=== PATIENT | female | born 1960 | race Caucasian/White ===

== ENCOUNTER → 2019-03-14 | Outpatient (CLI) | payer OTHER ==
--- NOTE | 2019-03-14 15:57 | Diagnostic Imaging Report ---
INDICATION: Postmenopausal screening. COMPARISON: None. FINDINGS: AP Spine L1-L4: [BMD (g/cm2): 0.581] [T-Score: -5.2] [Z-Score: -3.7] [BMD Previous: NA] [BMD % Change: NA] LT Hip Neck: [BMD (g/cm2): 0.653] [T-Score: -2.8] [Z-Score: -1.4] LT Hip Total: [BMD (g/cm2):0.605] [T-Score:-3.2] [Z-Score: -2.1] [BMD Previous: NA] [BMD % Change: NA] RT Hip Neck: [BMD (g/cm2):0.615] [T-Score:-3.0] [Z-Score:-1.6] RT Hip Total: [BMD (g/cm2):0.591] [T-score:-3.3] [Z-Score:-2.2] [BMD Previous:NA] [BMD % Change:NA] *Indicates significant change from prior examination based on 95% confidence level. World Health Organization criteria for BMD interpretation classify patients as Normal (T-score at or above -1.0), Osteopenic (T-score between -1.0 and -2.5) or Osteoporotic (T-score at or below -2.5). LIMITATIONS AND MODIFICATION: None. FRACTURE RISK (FRAX SCORE): The ten year probability of (%): Major Osteoporotic Fracture: [NA] Hip Fracture: [NA] IMPRESSION: 1. Osteoporosis. 2. Baseline examination. 3. See below National Osteoporosis Foundation guidelines on when to potentially initiate pharmacologic therapy. Based on the National Osteoporosis Foundation Guidelines, pharmacologic treatment should be initiated in any of the following, unless clinical conditions suggest otherwise: * Any patient with prior fragility fracture of the hip or vertebrae. A spine fracture indicates 5X risk for subsequent spine fracture and 2X risk for subsequent hip fracture. * Osteoporosis (T-score <-2.5). * Postmenopausal women and men age 50 and older with low bone mass/osteopenia (T-score between -1.0 and -2.5) by DXA and 10-year major osteoporotic fracture greater than 20% or a 10-year probability of hip fracture greater than 3%. These fracture risks are supplied above in the FRAX score, if applicable. * Clinician judgement and/or patient preferences may indicate treatment for people with 10-year fracture probabilities above or below these levels. Dictated by: Dictated on workstation # [id number]
== END ==
LOC: RAD 13:16
PROVIDERS: ATTEND Family Medicine
DX: Z13.820 Encounter for screening for osteoporosis (principal); M81.0 Age-related osteoporosis without current pathological fracture; Z78.0 Asymptomatic menopausal state
CPT/HCPCS: 77080

== ENCOUNTER → 2019-04-25 | Outpatient (CLI) | payer OTHER ==
--- NOTE | 2019-04-25 14:21 | Diagnostic Imaging Report ---
PROCEDURE: CT abdomen without contrast. TECHNIQUE: Multiple contiguous axial images were obtained through the abdomen without the use of intravenous contrast. Auto Exposure Controls were utilized during the CT exam to meet ALARA standards for radiation dose reduction. INDICATION: Incisional hernia and obstruction. COMPARISON: No priors. FINDINGS: There is a left paramedian supraumbilical ventral abdominal wall hernia comprised solely of fat. The neck of the defect measured about 1 cm in diameter. The remaining visualized anterior abdominal wall and rectus sheath appeared intact. No abdominal bowel obstruction. Unopacified liver is unremarkable. The gallbladder is surgically absent. The kidneys are unobstructed. There is a nodule measuring 2.1 x 1.6 cm in the left upper quadrant projecting along the superior surface of the distal tail of the pancreas, its further characterization with oral and intravenous contrast-enhanced abdominal imaging would be recommended. Remaining portions of the pancreas are unremarkable. The abdominal aorta is calcified but nonaneurysmal. Vessel patency cannot be addressed owing to the absence of contrast. There is no ascites or fluid collection. The visualized abdominal small and large bowel loops are nondilated. The lung bases are nonacute. No basilar pleural fluid. IMPRESSION: 1. Left paramedian ventral supraumbilical abdominal wall hernia comprised solely of fat. 2. No evidence for bowel, biliary, or urinary tract obstruction. 3. Indeterminate nodular density projecting in the left upper quadrant posterior to the proximal stomach and not readily separable from the superior surface of the distal pancreatic tail. Further characterization following oral and intravenous contrast recommended. Dictated by: Dictated on workstation # [id number]
== END ==
LOC: RAD 12:56
PROVIDERS: ATTEND Surgery
DX: K43.0 Incisional hernia with obstruction, without gangrene (principal); K43.9 Ventral hernia without obstruction or gangrene
CPT/HCPCS: 74150

== ENCOUNTER 2019-07-09 20:36 | Emergency (ER) | payer OTHER ==
[~2019-07-09] VITALS: Ht 157.4 cm; Wt 52.1 kg
--- OUTSIDE RECORDS SUMMARY | 2019-07-09 20:41 | XMS REPORT | Continuity of Care Document ---
Author Organization Unknown Address Unknown Phone Unavailable Allergies There is no data. Medications There is no data. Problems Date Dx Coded Attending Type Code Diagnosis Diagnosed By 03/15/2019 JUS RIOS MD Ot M81.0 AGE-RELATED OSTEOPOROSIS W/O CURRENT PAT 03/15/2019 JUS RIOS MD, Ot Z13.820 ENCOUNTER FOR SCREENING FOR OSTEOPOROSIS 03/15/2019 JUS RIOS MD, Ot Z78.0 ASYMPTOMATIC MENOPAUSAL STATE 04/27/2019 CARLOS JOHNSON DO Ot K43.0 INCISIONAL HERNIA WITH OBSTRUCTION, WITH 04/27/2019 CARLOS JOHNSON DO Ot K43.9 VENTRAL HERNIA WITHOUT OBSTRUCTION OR GA Procedures There is no data. Results Test Result Range CMP - 02/28/19 14:10 GLUCOSE 119 mg/dL 65-99 UREA NITROGEN (BUN) 14 mg/dL 7-25 CREATININE 0.63 mg/dL 0.50-1.05 eGFR NON-AFR. CHADIAN 100 mL/min/1.73m2 > OR = 60 eGFR 115 mL/min/1.73m2 > OR = 60 BUN/CREATININE RATIO NOT APPLICABLE (calc) 6-22 SODIUM 140 mmol/L 135-146 POTASSIUM 4.3 mmol/L 3.5-5.3 CHLORIDE 96 mmol/L 98-110 CARBON DIOXIDE 36 mmol/L 20-32 CALCIUM 9.2 mg/dL 8.6-10.4 PROTEIN, TOTAL 6.1 g/dL 6.1-8.1 ALBUMIN 4.2 g/dL 3.6-5.1 GLOBULIN 1.9 g/dL (calc) 1.9-3.7 ALBUMIN/GLOBULIN RATIO 2.2 (calc) 1.0-2. 5 BILIRUBIN, TOTAL 0.3 mg/dL 0.2-1.2 ALKALINE PHOSPHATASE 124 U/L 33-130 AST 15 U/L 10-35 ALT 15 U/L 6-29 Encounters ACCT No. Visit Date/Time Discharge Status Pt. Type Provider Facility Loc./Unit Complaint [id number] 02/28/2019 13:15:00 02/28/2019 23:59: 59 CLS Outpatient DAVE CARTWRIGHT [id number] 02/28/2019 13:15:00 Document Registration [id number] 04/25/2019 12:56:00 23:59:59 CLS Outpatient CARLOS JOHNSON DO [facility] RAD INCISIONAL HERNIA W/ OBSTRUCTION,W/O GANGRENE [id number] 03/14/2019 13:16:00 23:59:59 CLS Outpatient GABRIEL ANDREWS, JUS Noble [facility] RAD ASYMPTOMATIC MENOPAUSAL STATE
[2019-07-09] MEDS ORDERED: RT-ALBUTEROL/IPRATROPIUM 3 ML (DUONEB) VIAL ONE (20:45)
[2019-07-09 20:57] LABS: BASOPHILS % (AUTO) 0 % (0-10); EOSINOPHILS # (AUTO) 0.1 10^3/uL (0.0-0.3); EOSINOPHILS % (AUTO) 1 % (0-10); HEMATOCRIT 43 % (35-52); HEMOGLOBIN 13.5 G/DL (11.5-16.0); LYMPHOCYTES # (AUTO) 2.8 X 10^3 (1.0-4.0); LYMPHOCYTES % (AUTO) 19 % (12-44); MEAN CORPUSCULAR HEMOGLOBIN 29 PG (25-34); MEAN CORPUSCULAR HGB CONC 32 G/DL (32-36); MEAN CORPUSCULAR VOLUME 92 FL (80-99); MEAN PLATELET VOLUME 9.6 FL (7.4-10.4); MONOCYTES # (AUTO) 2.3 X 10^3 (0.0-1.0); MONOCYTES % (AUTO) 16 % (0-12); NEUTROPHILS # (AUTO) 9.5 X 10^3 (1.8-7.8); NEUTROPHILS % (AUTO) 65 % (42-75); PLATELET COUNT 282 10^3/uL (130-400); RED CELL DISTRIBUTION WIDTH 13.7 % (10.0-14.5); WHITE BLOOD COUNT 14.6 10^3/uL (4.3-11.0)
[2019-07-09 20:58] LABS: ABG BASE EXCESS 8.8 MMOL/L (-2.5-2.5); ABG OXYGEN SATURATION 99 % (94-100); ABG PCO2 62 MMHG (35-45); ABG PH 7.36 (7.37-7.43); ABG PO2 118 MMHG (79-93); ABG TCO2 36.3 MMOL/L (21.0-31.0); ALLENS TEST YES-POS; INSPIRED O2 2L; PATIENT TEMP 36.8; VENTILATOR NO
--- NOTE | 2019-07-09 21:00 | ED General ---
General Chief Complaint: General Problems/Pain Stated Complaint: LETHARGIC/PRODUCTIVE COUGH/HX COPD Source of Information: Patient Exam Limitations: No Limitations History of Present Illness Date Seen by Provider: July 09, 2019 Time Seen by Provider: 20:58 Initial Comments To ER with a three-day history of lethargy, productive cough, history of COPD. No fevers, no travel history, she states she hasn't left her house in several weeks. She wears oxygen at 2 L/m per nasal cannula around the clock. Timing/Duration: 1-2 Days Severity: Moderate Associated Systoms: Cough Allergies and Home Medications Allergies Coded Allergies: No Known Drug Allergies (Unverified , 07/09/19) Home Medications Amoxicillin/Potassium Clav 1 Each Tablet, 1 EACH PO BID Prescribed by: NEELAM KAUR on 07/09/192126 Prednisone 20 Mg Tab, 40 MG PO DAILY Prescribed by: NEELAM KAUR on 07/09/192126 Patient Home Medication List Home Medication List Reviewed: Yes Review of Systems Review of Systems Constitutional: see HPI, other (fatigue) EENTM: see HPI Respiratory: see HPI, cough Cardiovascular: no symptoms reported Genitourinary: no symptoms reported Musculoskeletal: no symptoms reported Skin: no symptoms reported Psychiatric/Neurological: No Symptoms Reported Past Threwbz-Rygnhc-Sgktjs Hx Patient Social History Recent Foreign Travel: No Contact w/Someone Who Travel: No Physical Exam Vital Signs Vital Signs - First Documented 07/09/19 20:45 Temp 36.8 Pulse 114 Resp 20 B/P (MAP) 144/88 (106) Pulse Ox 97 O2 Delivery Nasal Cannula O2 Flow Rate 2.00 Capillary Refill : Height, Weight, BMI Height: '" Weight: lbs. oz. kg; BMI Method: General Appearance: No Apparent Distress, WD/WN, Chronically ill (appears much older than stated age), Thin, Other (speaks in full sentences, no distress, lung sounds are very diminished with expiratory wheeze. Oxygen saturation 99% on her baseline 2 L.) Eyes: Bilateral Eye Normal Inspection, Bilateral Eye PERRL, Bilateral Eye EOMI HEENT: PERRL/EOMI, TMs Normal Neck: Full Range of Motion, Normal Inspection Respiratory: No Accessory Muscle Use, No Respiratory Distress, Decreased Breath Sounds Gastrointestinal: Normal Bowel Sounds, Non Tender, Soft Extremity: Normal Capillary Refill, Normal Inspection Neurologic/Psychiatric: Alert, Oriented x3 Skin: Normal Color, Warm/Dry Progress/Results/Core Measures Suspected Sepsis SIRS Temperature: Pulse: Respiratory Rate: Laboratory Tests 07/09/19 20:50: White Blood Count 14.6H Blood Pressure / Mean: Laboratory Tests 07/09/19 20:50: Creatinine 0.64, Platelet Count 282 Results/Orders Lab Results Laboratory Tests Test 07/09/19 20:50 07/09/19 20:56 Range/Units White Blood Count 14.6 H 4.3-11.0 10^3/uL Red Blood Count 4.66 4.35-5.85 10^6/uL Hemoglobin 13.5 11.5-16.0 G/DL Hematocrit 43 35-52 % Mean Corpuscular Volume 92 80-99 FL Mean Corpuscular Hemoglobin 29 25-34 PG Mean Corpuscular Hemoglobin Concent 32 32-36 G/DL Red Cell Distribution Width 13.7 10.0-14.5 % Platelet Count 282 130-400 10^3/uL Mean Platelet Volume 9.6 7.4-10.4 FL Neutrophils (%) (Auto) 65 42-75 % Lymphocytes (%) (Auto) 19 12-44 % Monocytes (%) (Auto) 16 H 0-12 % Eosinophils (%) (Auto) 1 0-10 % Basophils (%) (Auto) 0 0-10 % Neutrophils # (Auto) 9.5 H 1.8-7.8 X 10^3 Lymphocytes # (Auto) 2.8 1.0-4.0 X 10^3 Monocytes # (Auto) 2.3 H 0.0-1.0 X 10^3 Eosinophils # (Auto) 0.1 0.0-0.3 10^3/uL Basophils # (Auto) 0.0 0.0-0.1 10^3/uL Neutrophils % (Manual) 67 % Lymphocytes % (Manual) 20 % Monocytes % (Manual) 13 % Hypochromasia SLIGHT Sodium Level 136 135-145 MMOL/L Potassium Level 4.1 3.6-5.0 MMOL/L Chloride Level 95 L 98-107 MMOL/L Carbon Dioxide Level 29 21-32 MMOL/L Anion Gap 12 5-14 MMOL/L Blood Urea Nitrogen 8 7-18 MG/DL Creatinine 0.64 0.60-1.30 MG/DL Estimat Glomerular Filtration Rate > 60 BUN/Creatinine Ratio 13 Glucose Level 100 70-105 MG/DL Calcium Level 9.0 8.5-10.1 MG/DL Blood Gas Puncture Site RIGHT RADIAL Blood Gas Patient Temperature 36.8 Arterial Blood pH 7.36 L 7.37-7.43 Arterial Blood Partial Pressure CO2 62 H 35-45 MMHG Arterial Blood Partial Pressure O2 118 H 79-93 MMHG Arterial Blood HCO3 34 H 23-27 MMOL/L Arterial Blood Total CO2 36.3 H 21.0-31.0 MMOL/L Arterial Blood Oxygen Saturation 99 94-100 % Arterial Blood Base Excess 8.8 H -2.5-2.5 MMOL/L Jimi Test YES-POS Blood Gas Ventilator Setting NO Blood Gas Inspired Oxygen 2L My Orders Orders - NEELAM KAUR APRN Cbc With Automated Diff (07/09/19 20:46) Basic Metabolic Panel (07/09/19 20:46) Chest Pa/Lat (2 View) (07/09/19 20:46) Arterial Blood Gas (07/09/19 20:55) Manual Differential (07/09/19 20:50) Ceftriaxone For Iv Use (Rocephin For I (07/09/19 21:30) Prednisone Tablet (Deltasone Tablet) (07/09/19 21:30) Medications Given in ED Current Medications Medications Dose Ordered Sig/Tashi Route Start Time Stop Time Status Last Admin Dose Admin Albuterol/ Ipratropium 3 ml STK-MED ONCE .ROUTE 07/09/19 20:45 07/09/19 20:54 DC 07/09/19 20:56 3 ML Ceftriaxone Sodium 1000 mg/ Sterile Water 10 ml @ 200 mls/hr ONCE ONCE IV 07/09/19 21:30 07/09/19 21:32 DC 07/09/19 21:34 200 MLS/HR Prednisone 60 mg ONCE ONCE PO 07/09/19 21:30 07/09/19 21:31 DC 07/09/19 21:34 60 MG Vital Signs/I&O 07/09/19 20:45 Temp 36.8 Pulse 114 Resp 20 B/P (MAP) 144/88 (106) Pulse Ox 97 O2 Delivery Nasal Cannula O2 Flow Rate 2.00 Capillary Refill : Diagnostic Imaging Diagonstic Imaging: Xray Plain Films/CT/US/NM/MRI: chest Comments NAME: ALFREDO HALL MED REC#: [id number] PT STATUS: REG ER : 1960 PHYSICIAN: NEELAM KAUR APRN ADMIT DATE: 07/09/19/ER Draft Date of Exam:07/09/19 CHEST PA/LAT (2 VIEW) INDICATION: Cough and shortness of breath. EXAMINATION: PA and lateral chest. FINDINGS: There is air trapping in the lungs. There is a 2 cm nodular opacity in the left upper lobe. There is no infiltrate, effusion or pneumothorax. Heart size and pulmonary vascularity are normal. IMPRESSION: COPD. Possible pulmonary nodule in the left upper lobe. Neoplasm could not be excluded. Dictated on workstation # [id number] Dict: 07/09/192119 Trans: 07/09/192121 E [id number] Interpreted by: ABHIJIT KYLE MD Electronically signed by: Departure Communication (Admissions) Discussed with patient the elevated CO2, she states "oh, its gone down then". Shes mentating well, doesnt need bipap at this time. Discussed with patient that we'd dc to home on antibiotics and steroids. Discussed the pulmonary nodule. She states that she has a CT ordered (but she isnt sure when) to further evaluate that by a doc in [place]. Discussed with daughter and she agrees to return her mother to ER or primary care if no improvement. Impression Primary Impression: COPD exacerbation Additional Impression: Pulmonary nodule, left Disposition: 01 HOME, SELF-CARE Condition: Stable Departure-Patient Inst. Decision time for Depature: 21:26 Referrals: JUS RIOS MD (PCP/Family) Primary Care Physician Patient Instructions: Exacerbation of COPD, Pulmonary Nodule Add. Discharge Instructions: 1. Steroids and antibiotics as directed. Follow-up with her regular doctor later this week to schedule a CT scan of the chest to further evaluate the nodule in the left lung. Return to ER for any worsening. All discharge instructions reviewed with patient and/or family. Voiced understanding. Scripts Amoxicillin/Potassium Clav (Augmentin 875-125 Tablet) 1 Each Tablet 1 EACH PO BID, #14 TAB 0 Refills Prov: NEELAM KAUR APRN 07/09/19 Prednisone (Prednisone) 20 Mg Tab 40 MG PO DAILY, #6 TAB 0 Refills Prov: NEELAM KAUR APRN 07/09/19 NEELAM KAUR APRN July 09, 2019 21:00
[2019-07-09 21:06] LABS: CHLORIDE 95 MMOL/L (98-107); POTASSIUM 4.1 MMOL/L (3.6-5.0); SODIUM 136 MMOL/L (135-145)
[2019-07-09 21:08] LABS: GLUCOSE 100 MG/DL (70-105)
[2019-07-09 21:09] LABS: CARBON DIOXIDE 29 MMOL/L (21-32)
[2019-07-09 21:12] LABS: CREATININE SERUM 0.64 MG/DL (0.60-1.30); GFR ESTIMATED > 60
[2019-07-09 21:13] LABS: BUN/CREATININE RATIO 13
--- NOTE | 2019-07-09 21:23 | Diagnostic Imaging Report ---
INDICATION: Cough and shortness of breath. EXAMINATION: PA and lateral chest. FINDINGS: There is air trapping in the lungs. There is a 2 cm nodular opacity in the left upper lobe. There is no infiltrate, effusion or pneumothorax. Heart size and pulmonary vascularity are normal. IMPRESSION: COPD. Possible pulmonary nodule in the left upper lobe. Neoplasm could not be excluded. Dictated by: Dictated on workstation # [id number]
[2019-07-09 21:27] LABS: HYPOCHROMASIA SLIGHT; LYMPHOCYTES % (MANUAL) 20 %; MONOCYTES % (MANUAL) 13 %; NEUTROPHILS % (MANUAL) 67 %
[2019-07-09] MEDS ORDERED: AMOX-358 PO (21:27)
[2019-07-09] MEDS ORDERED: PRD20T PO (21:27)
[2019-07-09] MEDS ORDERED: cefTRIAXone FOR IV USE 1,000 MG in WATER (STERILE) FOR INJECTION 10 ML IV ONE (21:30)
[2019-07-09] MEDS ORDERED: predniSONE 20 MG TAB PO ONE (21:30)
[2019-07-09 21:40] VITALS: BP 112/79
== END 2019-07-09 21:40 | disposition home or self-care (01) ==
LOC: EDUNIT# 20:36 → ER 20:38
DX: J44.1 Chronic obstructive pulmonary disease with (acute) exacerbation (principal); R91.1 Solitary pulmonary nodule; Z99.81 Dependence on supplemental oxygen
CPT/HCPCS: 36415; 71046; 80048; 82805; 85007; 85027; 94640; 96374

== ENCOUNTER → 2019-07-14 | Outpatient (CLI) | payer OTHER ==
[~2019-07-14] MED LIST: AMOX-358 PO; HOLD METFORMIN - RECEIVED CONTRAST 20 ML VIAL IV SCH; IOHEXOL 350 MG/ML 100 ML (OMNIPAQUE 350) VIAL IV ONE; NS 100 ML (IVPB) BAG IV ONE; PRD20T PO
--- NOTE | 2019-07-14 15:17 | Diagnostic Imaging Report ---
EXAMINATION: CT Chest with intravenous contrast. TECHNIQUE: Multiple contiguous axial images were obtained through the chest after the uneventful administration of intravenous contrast. All CT scans use one or more of the following dose optimizing techniques: automated exposure control, MA and/or KvP adjustment based on a patient size and exam type, or iterative reconstruction. HISTORY: Pulmonary nodule on chest radiograph. COMPARISON: Chest radiograph dated 07/09/2019. FINDINGS: There is no edema or pneumonia. No pleural effusion. No pneumothorax. There is no CT correlate for the radiographic abnormality. The abnormality is likely an old left anterior second rib fracture. Lungs are severely emphysematous. Heart size is normal. There are mild coronary artery calcifications. No pericardial effusion. Aorta is normal in caliber. There is no axillary or supraclavicular lymphadenopathy. There is no mediastinal lymphadenopathy. Limited views of the upper abdomen show the gallbladder to be absent. The nodule associated with the pancreatic tail and stomach is unchanged. There are no suspicious osseus lesions. There are multiple chronic-appearing compression fractures in the thoracic spine. IMPRESSION: 1. No pulmonary nodules are seen. The abnormality on the radiograph is likely necrotic left anterior second rib fracture. 2. Stable nodule associated with the pancreatic tail and stomach, pancreas protocol CT is recommended for further evaluation. Dictated by: Dictated on workstation # [id number]
== END ==
LOC: RAD FS 13:26
PROVIDERS: ATTEND Family Medicine
DX: R91.1 Solitary pulmonary nodule (principal); K86.89 Other specified diseases of pancreas; K31.89 Other diseases of stomach and duodenum
CPT/HCPCS: 71260

== ENCOUNTER → 2019-07-20 | Outpatient (CLI) | payer OTHER ==
[~2019-07-20] MED LIST changes: +BARIUM SUSPENSION 2.1% (VANILLA SILQ) 450 ML PO ONE; +CATHETER FLUSH 10 ML SYR IV PRN
--- NOTE | 2019-07-20 16:18 | Diagnostic Imaging Report ---
PROCEDURE: CT abdomen with and without contrast. TECHNIQUE: Multiple contiguous axial CT images of the abdomen were obtained prior to and after intravenous administration of iodinated contrast. Auto Exposure Controls were utilized during the CT exam to meet ALARA standards for radiation dose reduction. INDICATION: Follow-up pancreatic nodule. CORRELATION STUDY: CT abdomen 04/25/2019 FINDINGS: Emphysematous changes about the lung bases. Heart size within normal limits. The liver demonstrates a small amount of pneumobilia. There are cholecystectomy clips. This is may be owing to a prior surgery. No appreciable bile ductal dilatation. Spleen unremarkable. Right adrenal gland unremarkable. Lower-density nodule left adrenal gland favors probable adenoma, 11 mm in size. 1.6 x 2.1 cm mass in the left upper quadrant just posterior to the gastric body adjacent to the left adrenal gland and inseparable from the superior distal pancreatic tail. Demonstrates only mild enhancement, is also inseparable from adjacent vessels. Kidneys normal enhancement. No calcification or hydronephrosis. The abdominal aorta with mild to moderate aortic wall calcification, nonaneurysmal. There is mild to moderate focal narrowing at the origin of the celiac trunk. No pathologically enlarged central retroperitoneal lymph nodes present. Partially visualized gastrointestinal tract demonstrates the stomach to be slightly thick walled but is largely collapsed. Moderate severity fecal retention of stool in the visualized colon. A superior midline abdominal fat-containing hernia just anterior to the left lobe of the liver persists. Defect 14 mm in size. IMPRESSION: 1. 2 cm left upper quadrant mass again demonstrated. Origin is somewhat indeterminate. This may very well originate off the pancreas but could also be perhaps vascular in origin. Gastrointestinal stromal tumor of the stomach is considered less likely. MRI may be of additional diagnostic utility. However, endoscopic ultrasound may be of additional diagnostic utility. 2. Small amount of pneumobilia likely owing to prior biliary surgery. 3. Unchanged superior midline ventral wall hernia containing fat. Dictated by: Dictated on workstation # [id number]
== END ==
LOC: RAD FS 10:35
PROVIDERS: ATTEND Family Medicine
DX: K43.9 Ventral hernia without obstruction or gangrene (principal); R91.8 Other nonspecific abnormal finding of lung field
CPT/HCPCS: 74170

== ENCOUNTER 2019-09-28 12:50 | Outpatient (RCR) | payer OTHER ==
[~2019-09-28] VITALS: Ht 154 cm; Wt 54.5 kg
[~2019-09-28 12:50] MED LIST changes: -BARIUM SUSPENSION 2.1% (VANILLA SILQ) 450 ML PO ONE; -CATHETER FLUSH 10 ML SYR IV PRN; -HOLD METFORMIN - RECEIVED CONTRAST 20 ML VIAL IV SCH; -IOHEXOL 350 MG/ML 100 ML (OMNIPAQUE 350) VIAL IV ONE; -NS 100 ML (IVPB) BAG IV ONE
[2019-09-28] MEDS ORDERED: ALEN70TA5 PO (13:02)
[2019-09-28] MEDS ORDERED: ESCI20TA45 PO (13:33)
[2019-09-28] MEDS ORDERED: AZIT500T9 PO (13:33)
[2019-09-28] MEDS ORDERED: TRM50T PO (13:33)
[2019-09-28] MEDS ORDERED: IBUP-1780 PO (13:33)
[2019-09-28] MEDS ORDERED: IPRA3AMP31 IH (13:33)
[2019-09-28] MEDS ORDERED: TIOT18CA2 IH (13:33)
[2019-09-28] MEDS ORDERED: PRED5TAB PO (13:33)
[2019-09-28] MEDS ORDERED: OMEP40CA27 PO (13:33)
[2019-09-28] MEDS ORDERED: FLUT1AER IH (13:33)
== END 2019-09-28 13:38 | disposition home or self-care (01) ==
LOC: PREOP 12:50
PROVIDERS: ATTEND Surgery
DX: Z01.818 Encounter for other preprocedural examination (principal)
CPT/HCPCS: 87081

== ENCOUNTER 2019-10-04 06:57 | Day surgery (SDC) | payer OTHER ==
[2019-10-04] VITALS (11 sets, daily range): BP systolic 105–135; BP diastolic 68–91
[~2019-10-04] VITALS: Ht 154.9 cm; Wt 54.5 kg
[~2019-10-04 06:57] MED LIST changes: +ALEN70TA5 PO; +AZIT500T9 PO; +ESCI20TA45 PO; +FLUT1AER IH; +IBUP-1780 PO; +IPRA3AMP31 IH; +OMEP40CA27 PO; +PRED5TAB PO; +TIOT18CA2 IH; +TRM50T PO
[2019-10-04] MEDS ORDERED: BUP/EPI 0.5% 1:200,000 (MARCAINE) 10ML VIAL IJ ONE (07:06)
[2019-10-04] MEDS: LACTATED RINGERS 1,000 ML IV PRN ×2 (07:12→08:32)
[2019-10-04] MEDS ORDERED: ceFAZolin 2 GM IV Premixed 50 ML IV ONE (07:15)
[2019-10-04] MEDS ORDERED: LIDOCAINE PF 2% 5 ML (XYLOCAINE) VIAL ONE (07:17)
[2019-10-04] MEDS ORDERED: proPOfol 200 MG/20 ML (DIPRIVAN) VIAL IV ONE (07:17)
[2019-10-04] MEDS ORDERED: ONDANSETRON 4 MG/2 ML (SDV) Z0FRAN ONE (07:17)
[2019-10-04] MEDS ORDERED: MIDAZOLAM 2 MG/2 ML (VERSED) VIAL ONE (07:18)
[2019-10-04] MEDS ORDERED: fentaNYL INJECTION 100 MCG/2 ML AMP ONE (07:18)
[2019-10-04 07:35] LABS: BASOPHILS % (AUTO) 0 % (0-10); EOSINOPHILS # (AUTO) 0.1 10^3/uL (0.0-0.3); EOSINOPHILS % (AUTO) 1 % (0-10); HEMATOCRIT 42 % (35-52); HEMOGLOBIN 13.4 G/DL (11.5-16.0); LYMPHOCYTES # (AUTO) 2.9 X 10^3 (1.0-4.0); LYMPHOCYTES % (AUTO) 30 % (12-44); MEAN CORPUSCULAR HEMOGLOBIN 30 PG (25-34); MEAN CORPUSCULAR HGB CONC 32 G/DL (32-36); MEAN CORPUSCULAR VOLUME 95 FL (80-99); MONOCYTES # (AUTO) 1.5 X 10^3 (0.0-1.0); MONOCYTES % (AUTO) 16 % (0-12); NEUTROPHILS # (AUTO) 5.2 X 10^3 (1.8-7.8); NEUTROPHILS % (AUTO) 53 % (42-75); PLATELET COUNT 248 10^3/uL (130-400); WHITE BLOOD COUNT 9.7 10^3/uL (4.3-11.0)
[2019-10-04] MEDS ORDERED: PHENYLEPHRINE 100 MCG/ML 10 ML (ANESTHESIA) SYR ONE (09:01)
[2019-10-04] MEDS ORDERED: BUPIVACAINE 0.5% 30 ML (SENSORCAINE) VIAL ONE (09:01)
--- NOTE | 2019-10-04 09:05 | Progress Note-Post Operative ---
Post-Operative Progess Note Surgeon (s)/Residential Property Manager (s) Surgeon CARLOS JOHNSON DO Residential Property Manager: Evelia Pre-Operative Diagnosis INCISIONAL HERNIA Post-Operative Diagnosis Incarcerated Incisional/Ventral Herniarraphy Procedure & Operative Findings Date of Procedure 10/04/19 Procedure Performed/Findings Open Ventral Herniarraphy with mesh placement Anesthesia Type Spinal and local lidocaine Estimated Blood Loss Estimated blood loss (mL): scant Specimens/Packing Specimens Removed hernia contents CARLOS JOHNSON DO Oct 04, 2019 09:05
[2019-10-04] MEDS ORDERED: TRM50T PO (09:06)
--- NOTE | 2019-10-04 09:08 | Discharge Inst-Surgical ---
Discharge Inst-Surgical Depart Medication/Instructions New, Converted or Re-Newed RX: RX Given to Pt/Family Patient Instructions Follow up Appt: Make appointment for 1 week. [phone] Instructions: No lifting greater than 20 pounds. No strenuous activity. May shower in 24 hours, no tub bath or soaking. Use incentive spirometer at home as directed. No Smoking Skin/Wound Care: May remove bandages in am. You need to leave the Dermabond on incision it will fall off on it's own. Symptoms to Report: Appetite Changes, Extremity Discoloration, Numbness/Tingling, Swelling Increased, Bleeding Excessive, Eyesight Changes, Pain Increased, Urine Color Change, Constipation(Persistent), Fever over 101 degree F, Pain/Pressure in chest, Urinating Difficulty, Cough Up/Vomit Blood, Heart Beat Irreg/Pounding, Pain/Pressure in jaw, Cramps in feet or legs, Lightheadedness, Pain/Pressure in shoulder, Diarrhea(Persistent), Memory Changes Suddenly, Questions/Concerns, Weight gain consecutive days, Dizziness/Fainting, Nausea/Vomiting, Shortness of Breath, Weight gain over 2 pounds If questions or concerns contact your physician Or seek help at emergency department. Activity Activity as Tolerated: Yes Activity Instructions: Avoid Stress to Incision Driving Instructions: No Driving/Refer to Avoid ALL Tobacco Products: Smoking of Any Kind Diet Discharge Diet: No Restrictions Diet After 24 Hours: Clear Liquid if Nauseous If Any Problems/Questions/Issu: Contact Your Physician, Go to Emergency Room Skin/Wound Care Infection Signs and Symptoms: Increased Redness, Foul Odor of Wound, Increased Drainage, Skin Itchy or Has a Rash, Increased Swelling, Temperature Above 101 F Bathing Instructions: Shower Stitches/[place]/Dermabond Dis: Dermabond Ice Pack: Ice On and Off Site CARLOS JOHNSON DO Oct 04, 2019 09:07
[2019-10-04] MEDS ORDERED: morphine INJ 10 MG/ML 1ML (SYR OR VIAL) IVP ONE (09:45)
[2019-10-04] MEDS ORDERED: ONDANSETRON 4 MG/2 ML (SDV) Z0FRAN IVP PRN (09:45)
--- NOTE | 2019-10-04 09:47 | Anesthesia-Regional Post-Op ---
Regional Patient Condition Mental Status: Alert, Oriented x3 Circulation: Same as Pre-Op Headache: Absent Sensation: Full Recovery Motor Block: Absent Post Op Complications Complications None Follow Up Care/Instructions Patient Instructions None needed. Anesthesia/Patient Condition Patient is doing well, no complaints, stable vital signs, no apparent adverse anesthesia problems. No complications reported per nursing. EULALIA TRIMBLE CRNA Oct 04, 2019 09:47
--- NOTE | 2019-10-04 19:21 | OPERATIVE REPORT ---
DATE OF SERVICE: 10/04/2019 PREOPERATIVE DIAGNOSIS: Incarcerated incisional ventral hernia. POSTOPERATIVE DIAGNOSIS: Incarcerated incisional ventral hernia. PROCEDURE: Open ventral herniorrhaphy with mesh placement. SURGEON: Robinson Yoder DO COAT FELLER: Reagan Altamirano DO. ANESTHESIA: Spinal with local lidocaine. BLOOD LOSS: Scant. FLUIDS: Per anesthesia. POSTOPERATIVE CONDITION: Stable. INDICATION FOR PROCEDURE: The patient is a 59-year-old female who has a large bulge in the left upper abdomen, right next to her open incision. Had a CAT scan, which shows incarcerated incisional hernia and she wanted to get this fixed, it started to get bigger and caused her pain. Unfortunately, she had very poor pulmonary function, so had to do this without putting her to sleep. FINDINGS: The patient had incarcerated incisional hernia, this is repaired without any difficulty. PROCEDURE NOTE: After informed consent was obtained, the patient was brought to the operating room, placed on the table in supine position. She was sterilely prepped and draped in normal fashion. Local lidocaine was used to infiltrate above this lump as well as around it. I made an incision with #15 blade, carried down to skin and subcutaneous tissue, then deepened down to subcutaneous tissue with Bovie electrocautery, able to see the hernia sac, able to open this hernia sac and then carefully push some of the hernia contents back in, some we had to remove. This was passed off table and then able to free up the fascia to be able to visualize it, then got under the fascia with my finger and then bluntly dissected under the fascia. I elected to place a 6 cm Ventralex hernia patch. This went in easily. We then closed the hernia defect with 0 Vicryl, two [id number] sutures to close it. Closed it nicely, tying in the tail of the Ventralex mesh and then cutting off the tail. Area was cleaned and dried. Cut off the tail and then copiously irrigated with normal saline, suctioned this out and then closed the incision with 4-0 Monocryl, 4-0 interrupted subcuticular stitches. Area was cleaned and dried. Dermabond placed as well as dressing. The patient tolerated the procedure. Sponge, instrument and needle count correct at the end of the case. Dr. Altamirano assisted in this case helping to close the incision, identify anatomy, hold anatomy out of the way. Job ID: [id number] DocumentID: [id number] Dictated Date: 10/04/2019 09:11:01 Distribution Field Engineer Date: 10/04/2019 19:19:48 Dictated By: ROBINSON YODER DO
== END 2019-10-04 13:30 | disposition home or self-care (01) ==
LOC: SDC 06:57
PROVIDERS: ATTEND Surgery
DX: K43.0 Incisional hernia with obstruction, without gangrene (principal); J43.9 Emphysema, unspecified; M81.0 Age-related osteoporosis without current pathological fracture; F41.9 Anxiety disorder, unspecified; F32.9 Major depressive disorder, single episode, unspecified; K21.9 Gastro-esophageal reflux disease without esophagitis; M54.9 Dorsalgia, unspecified; G89.29 Other chronic pain; Z79.899 Other long term (current) drug therapy; Z11.2 Encounter for screening for other bacterial diseases
CPT/HCPCS: 49561; 49568; 85025; 87081; C1781; 36415

== ENCOUNTER 2019-12-12 06:43 | Outpatient (RCR) | payer OTHER ==
[~2019-12-12] VITALS: Ht 154.9 cm; Wt 54.5 kg
[~2019-12-12 06:43] MED LIST changes: -ALEN70TA5 PO; +ALEN70TA69 PO
[2019-12-12] MEDS ORDERED: OMEP20CA18 PO (11:21)
[2019-12-12] MEDS ORDERED: TRAM50TA3 PO (11:21)
== END 2019-12-12 11:51 | disposition home or self-care (01) ==
LOC: PREOP 06:43
PROVIDERS: ATTEND Specialist
DX: Z01.818 Encounter for other preprocedural examination (principal)

== ENCOUNTER → 2019-12-13 | Outpatient (CLI) | payer OTHER ==
[~2019-12-13] MED LIST changes: +OMEP20CA18 PO; +TRAM50TA3 PO
== END ==
LOC: LAB FS 10:30
PROVIDERS: ATTEND Specialist
DX: Z01.812 Encounter for preprocedural laboratory examination (principal); Z20.828 Contact with and (suspected) exposure to other viral communicable diseases
CPT/HCPCS: 87635

== ENCOUNTER 2019-12-15 07:59 | Day surgery (SDC) | payer OTHER ==
[~2019-12-15] VITALS: Ht 154.9 cm; Wt 54.5 kg
[2019-12-15] MEDS ORDERED: POVIDONE (BETADINE) OPHTH SOLN 5% 30 ML OP ONE (08:15)
[2019-12-15] MEDS ORDERED: LIDOCAINE PF 1% 2 ML VIAL IR PRN (08:15)
[2019-12-15] MEDS ORDERED: TIMOLOL MALEATE 0.5% 5 ML (TIMOPTIC) BTL OU PRN (08:15)
[2019-12-15] MEDS ORDERED: MOXIFLOXACIN OPHTH SOLN 5 MG/ML 0.3 ML SYRINGE OP ONE (08:15)
[2019-12-15] MEDS: TETRACAINE 0.5% OPHTH SOLN 4 ML BTL (SINGLE DOSE ONLY) OU PRN ×4 (08:19→08:49)
[2019-12-15 08:23] VITALS: BP 135/76
[2019-12-15] MEDS: TROPICAMIDE 1% OPH SOLN (MYDRIACYL) 15 ML BTL OP SCH ×3 (08:34→08:49)
[2019-12-15] MEDS: PHENYLEPHRINE 10% OPHTH (NEO-SYN) 5 ML BTL OU SCH ×3 (08:34→08:49)
[2019-12-15] MEDS ORDERED: MIDAZOLAM 2 MG/2 ML (VERSED) VIAL ONE (09:10)
--- NOTE | 2019-12-15 09:10 | Ophthalmologist Pre-Op Note ---
Pre-Operative Progress Note H&P Reviewed The H&P was reviewed, patient examined and no changes noted. Date H&P Reviewed: Dec 15, 2019 Time H&P Reviewed: 09:05 Pre-Op Dx Cataract, Left Eye FLACA ACKERMAN MD Dec 15, 2019 09:10
--- NOTE | 2019-12-15 09:29 | Ophthalmology Operative Report ---
Cataract removal/placement IOL PREOPERATIVE DIAGNOSIS: Cataract Left Eye POSTOPERATIVE DIAGNOSIS: Cataract Left Eye PROCEDURE: Cataract removal and placement of posterior chamber implant, left eye SURGEON: Sharif Ackerman ANESTHESIA: Topical with sedation COMPLICATIONS: None ESTIMATED BLOOD LOSS: Minimal DESCRIPTION OF PROCEDURE: After proper informed consent was obtained, the patient, a 59 female, was taken to the Operating Room and the left eye was anesthetized with tetracaine. The left eye was then prepped and draped in the usual manner. A wire lid speculum was placed. A paracentesis was made at the left hand position. Preservative free lidocaine was injected into the anterior chamber followed by viscoelastic. A clear corneal incision was made in the temporal position. A capsulorrhexis was preformed and the central nuclear and cortical material were removed. The posterior capsule was polished and an Joe 21.5 AU00T0 was placed into the capsular bag. The residual viscoelastic was aspirated and balanced saline solution was injected into the anterior chamber. Moxifloxacin was injected into the anterior chamber. The wound was checked and found to be water tight. The patient tolerated the procedure well without complications. SHARIF ACKERMAN MD Dec 15, 2019 09:29
[2019-12-15] MEDS ORDERED: acetaZOLAMIDE ER 500 MG CAP (DIAMOX SEQUELS) PO ONE (09:30)
[2019-12-15 09:35] VITALS: BP 132/87
--- NOTE | 2019-12-15 12:21 | Anesthesia-General Post-Op ---
MAC Patient Condition Mental Status/LOC: Same as Preop Cardiovascular: Satisfactory Nausea/Vomiting: Absent Respiratory: Satisfactory Pain: Controlled Complications: Absent Post Op Complications Complications None Follow Up Care/Instructions Patient Instructions None needed. Anesthesiology Discharge Order Discharge Order Patient is doing well, no complaints, stable vital signs, no apparent adverse anesthesia problems. No complications reported per nursing. RANJEET JAVED CRNA Dec 15, 2019 12:21
== END 2019-12-15 10:40 ==
LOC: SDC 07:59
PROVIDERS: ATTEND Specialist
DX: H25.12 Age-related nuclear cataract, left eye (principal); J44.9 Chronic obstructive pulmonary disease, unspecified; K21.9 Gastro-esophageal reflux disease without esophagitis; Z79.51 Long term (current) use of inhaled steroids; Z79.899 Other long term (current) drug therapy; Z87.891 Personal history of nicotine dependence; Z80.3 Family history of malignant neoplasm of breast; Z80.0 Family history of malignant neoplasm of digestive organs
CPT/HCPCS: 66984; V2632

== ENCOUNTER 2019-12-18 06:14 | Outpatient (RCR) | payer OTHER | END 2019-12-18 14:25 | disposition home or self-care (01) | LOC: PREOP 06:14 | PROVIDERS: ATTEND Specialist | DX: Z01.818 Encounter for other preprocedural examination (principal) ==

== ENCOUNTER → 2019-12-19 | Outpatient (CLI) | payer OTHER | LOC: LAB FS 10:15 | PROVIDERS: ATTEND Specialist | DX: Z01.812 Encounter for preprocedural laboratory examination (principal); Z20.828 Contact with and (suspected) exposure to other viral communicable diseases | CPT/HCPCS: 87635 ==

== ENCOUNTER 2019-12-22 07:58 | Day surgery (SDC) | payer OTHER ==
[~2019-12-22] VITALS: Ht 154.9 cm; Wt 54.5 kg
[2019-12-22] MEDS ORDERED: LIDOCAINE PF 1% 2 ML VIAL IR PRN (08:45)
[2019-12-22] MEDS ORDERED: MOXIFLOXACIN OPHTH SOLN 5 MG/ML 0.3 ML SYRINGE OP ONE (08:45)
[2019-12-22] MEDS ORDERED: TIMOLOL MALEATE 0.5% 5 ML (TIMOPTIC) BTL OU PRN (08:45)
[2019-12-22] MEDS ORDERED: POVIDONE (BETADINE) OPHTH SOLN 5% 30 ML OP ONE (08:45)
[2019-12-22] MEDS: TETRACAINE 0.5% OPHTH SOLN 4 ML BTL (SINGLE DOSE ONLY) OU PRN ×4 (08:46→09:07)
[2019-12-22] MEDS ORDERED: MIDAZOLAM 2 MG/2 ML (VERSED) VIAL ONE (08:48)
[2019-12-22] MEDS: TROPICAMIDE 1% OPH SOLN (MYDRIACYL) 15 ML BTL OP SCH ×3 (08:52→09:07)
[2019-12-22] MEDS: PHENYLEPHRINE 10% OPHTH (NEO-SYN) 5 ML BTL OU SCH ×3 (08:52→09:07)
[2019-12-22 08:58] VITALS: BP 138/94
--- NOTE | 2019-12-22 09:25 | Ophthalmologist Pre-Op Note ---
Pre-Operative Progress Note H&P Reviewed The H&P was reviewed, patient examined and no changes noted. Date H&P Reviewed: Dec 22, 2019 Time H&P Reviewed: 09:25 Pre-Op Dx Cataract, Right Eye FLACA ACKERMAN MD Dec 22, 2019 09:25
--- NOTE | 2019-12-22 09:50 | Ophthalmology Operative Report ---
Cataract removal/placement IOL PREOPERATIVE DIAGNOSIS: Cataract Right Eye POSTOPERATIVE DIAGNOSIS: Cataract Right Eye PROCEDURE: Cataract removal and placement of posterior chamber implant, right eye SURGEON: Sharif Ackerman ANESTHESIA: Topical with sedation COMPLICATIONS: None ESTIMATED BLOOD LOSS: Minimal DESCRIPTION OF PROCEDURE: After proper informed consent was obtained, the patient, a 59 female, was taken to the Operating Room and the right eye was anesthetized with tetracaine. The right eye was then prepped and draped in the usual manner. A wire lid speculum was placed. A paracentesis was made at the left hand position. Preservative free lidocaine was injected into the anterior chamber followed by viscoelastic. A clear corneal incision was made in the temporal position. A capsulorrhexis was preformed and the central nuclear and cortical material were removed. The posterior capsule was polished and Joe 21.5 AU00T0 IOL was placed into the capsular bag. The residual viscoelastic was aspirated and balanced saline solution was injected into the anterior chamber. Moxifloxacin was injected into the anterior chamber. The wound was checked and found to be water tight. The patient tolerated the procedure well without complications. SHARIF ACKERMAN MD Dec 22, 2019 09:50
--- NOTE | 2019-12-22 09:56 | Anesthesia-General Post-Op ---
MAC Patient Condition Mental Status/LOC: Same as Preop Cardiovascular: Satisfactory Nausea/Vomiting: Absent Respiratory: Satisfactory Pain: Controlled Complications: Absent Post Op Complications Complications None Follow Up Care/Instructions Patient Instructions None needed. Anesthesiology Discharge Order Discharge Order Patient is doing well, no complaints, stable vital signs, no apparent adverse anesthesia problems. No complications reported per nursing. ANDIE WOLFF CRNA Dec 22, 2019 09:56
[2019-12-22 10:05] VITALS: BP 124/91
[2019-12-22] MEDS ORDERED: acetaZOLAMIDE ER 500 MG CAP (DIAMOX SEQUELS) PO ONE (10:30)
== END 2019-12-22 10:05 | disposition home or self-care (01) ==
LOC: SDC 07:58
PROVIDERS: ATTEND Specialist
DX: H25.11 Age-related nuclear cataract, right eye (principal); J44.9 Chronic obstructive pulmonary disease, unspecified; K21.9 Gastro-esophageal reflux disease without esophagitis; Z79.899 Other long term (current) drug therapy; Z87.891 Personal history of nicotine dependence; Z80.3 Family history of malignant neoplasm of breast
CPT/HCPCS: 66984; V2632

== ENCOUNTER → 2021-03-31 | Outpatient (CLI) | payer OTHER ==
[~2021-03-31] MED LIST changes: -ALEN70TA69 PO; +ALEN70TA80 PO; +ESCI20TA39 PO; -ESCI20TA45 PO; -OMEP40CA27 PO; +OMEP40CA6 PO
== END ==
LOC: CARD 12:00
PROVIDERS: ATTEND Internal Medicine Cardiovascular Disease
DX: I35.8 Other nonrheumatic aortic valve disorders (principal); I51.7 Cardiomegaly
CPT/HCPCS: 93225; 93226; 93306